=== PATIENT | female | born 1975 | race Caucasian/White ===

== ENCOUNTER → 2016-10-17 | Outpatient (CLI) | payer OTHER ==
--- NOTE | 2016-10-17 11:15 | KCIC ---
Indication: Right hip pain. Time of exam 10:48 AM Femoral acetabular alignment is normal. The joint space is well maintained. The femoral head and neck are intact. No fractures are seen. IMPRESSION: No acute bony abnormality is detected. Electronically signed by: Tee Riddle MD (10/17/2016 11:12 AM) [id number]
== END | disposition home or self-care (01) ==
LOC: KCIC 10:30
PROVIDERS: ATTEND Orthopaedic Surgery
DX: M25.551 Pain in right hip (principal)
CPT/HCPCS: 73502